=== PATIENT | male | born 1985 | race Caucasian/White ===

== ENCOUNTER 2018-08-08 22:04 | Emergency (ER) | payer OTHER ==
--- NOTE | 2018-08-08 23:04 | EDM.PDOC ---
ED HPI GENERAL MEDICAL PROBLEM - General Chief Complaint: Head Injury Stated Complaint: WCOMP/PIPE FELL ON HEAD Time Seen by Provider: 08/08/18 23:02 Source of Information: Reports: Patient History Limitations: Reports: No Limitations - History of Present Illness INITIAL COMMENTS - FREE TEXT/NARRATIVE: 33-year-old male presents the ED for evaluation of closed head injury that occurred in the workplace about 2300 hrs. last night. She works for a [employer] company. He was working currently at the [email or web address] in [place]. He works doing construction. He was up on a scaffold and on his knees with his hard hat in place last evening. He was struck suddenly from above mostly on the occipital aspect of his head by a large 3 inch pipe that was being pulled by machinery. This caused him to bend at the lower back aggressively and that the neck as his head was driven downwards towards his knees. He states he was dazed but he did not lose consciousness. The pipe caved in the inside of his hard hat. Ruptured the harness inside his hard hat. He states after a period of time he was able to continue and finish out his shift which ended about 5:30 in the morning. He has eaten twice since that time with no nausea or vomiting. He was able to sleep adequately today and felt enough to return to the workplace. However once he got to work with exertion he started developing significant headache which is better now at rest. He has no blurred vision no nausea or vomiting and no off balance feeling. Still has a headache rating it 3-4 out of 10 at this time. Didn't know if he can take Motrin because of concerns for possible bleeding. No previous severe closed his injury but he reports she's had a concussion at least twice in the past. He states his neck is a little stiff and sore but he has full range of motion. He denies any low back pain or injury to any other body parts. Onset: Sudden Onset Date: 08/07/18 Onset Time: 23:00 Duration: Hour(s):, Getting Worse Location: Reports: Head (Headache.) Quality: Reports: Ache Severity: Moderate (Headache 7 out of 10 at work tonight.) Improves with: Reports: Rest Worsens with: Reports: Other (Exertion.) Context: Reports: Trauma (Closed head injury last night in the workplace when he was struck by a large pipe from above on the occipital aspect of his head.). Denies: Activity, Exercise, Lifting, Sick Contact, Other Associated Symptoms: Reports: Headaches. Denies: Confusion, Chest Pain, Cough, cough w sputum, Diaphoresis, Fever/Chills, Loss of Appetite, Malaise, Nausea/ Vomiting, Rash, Seizure, Shortness of Breath, Syncope Treatments MARKETING SERVICES SPECIALIST: Reports: Other (see below) (None.) Headache Pain Score (Numeric/FACES): 5 - Related Data Allergies Allergy/AdvReac Type Severity Reaction Status Date / Time No Known Allergies Allergy Verified 08/08/18 23:55 Home Meds: Home Meds . [No Known Home Meds] 08/08/18 [History] Past Medical History Neurological History: Reports: Other (See Below) (Closed head injuries with concussion in the past) Social & Family History - Living Situation & Occupation Occupation: Employed ED ROS GENERAL - Review of Systems Review Of Systems: See Below Constitutional: Denies: Fever, Chills, Malaise, Weakness, Fatigue, Weight Loss HEENT: Reports: No Symptoms Respiratory: Reports: No Symptoms Cardiovascular: Reports: No Symptoms Endocrine: Reports: No Symptoms GI/Abdominal: Reports: No Symptoms : Reports: No Symptoms Musculoskeletal: Reports: Neck Pain. Denies: Shoulder Pain (Neck stiffness with full range of motion.), Arm Pain, Back Pain, Hand Pain, Leg Pain, Foot Pain , Joint Pain, Joint Swelling Skin: Reports: No Symptoms Neurological: Reports: Headache. Denies: Confusion, Dizziness, Numbness, Paresthesia, Pre-Existing Deficit, Seizure, Syncope, Tingling, Tremors, Trouble Speaking, Difficulty Walking, Weakness Psychiatric: Reports: No Symptoms Hematologic/Lymphatic: Reports: No Symptoms Immunologic: Reports: No Symptoms ED EXAM, HEAD INJURY - Physical Exam Exam: See Below Exam Limited By: No Limitations General Appearance: Alert, WD/WN, Anxious, Mild Distress Head: Atraumatic, Normocephalic, Other (No palpable deformities of the skull or scalp or scalp hematoma identified.) Nexus Criteria: Posterior, Midline Cervical Tenderness. No: Evidence of Intoxication, Altered Level of Consciousness, Focal Neurological Deficit, Painful Distraction Injuries Eyes: Bilateral Eye: Normal Inspection Nose: Normal Inspection, Normal Mucousa, No Blood Throat/Mouth: Normal Inspection, Normal Lips, Normal Teeth, Normal Gums, Normal Oropharynx Neck: Full Range of Motion, Stiff Neck. No: Normal Alignment, Normal Inspection Respiratory: No Respiratory Distress, Lungs Clear, Normal Breath Sounds, Chest Non-Tender Cardiovascular: Normal Peripheral Pulses, Regular Rate, Rhythm, No Edema, No Murmur, No Rub GI/Abdominal Exam: Normal Bowel Sounds, Soft, Non-Tender, No Organomegaly, No Abnormal Bruit, No Mass, Pelvis Stable Back Exam: Normal Inspection, Full Range of Motion. 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, No Motor/Sensory Deficits, Alert, Normal Mood/Affect, Oriented x 3 Skin: Normal Color, Warm/Dry - Gisel Coma Score Best Eye Response (Gisel): (4) Open Spontaneously Best Verbal Response (Gisel): (5) Oriented Best Motor Response (Gisel): (6) Obeys Commands Beaver Total: 15 Course - Vital Signs Last Recorded V/S: Last Vital Signs Temp 37.1 C 08/08/18 22:53 Pulse 79 08/08/18 22:53 Resp 18 08/08/18 22:53 BP 131/82 08/08/18 22:53 Pulse Ox 99 08/08/18 22:53 - Radiology Interpretation Free Text/Narrative:: 33-year-old male presents to the ED for evaluation after being injured night before last when he was struck from behind while kneeling by a large piece of 3 inch steel pipe. He was struck in the occipital aspect of his head which forces had progressively forwards towards his knees. States he was dazed but did not lose consciousness. States he ruptured the harness on the inner aspect of his heart had but did not open up the plastic of the hard hat. He states he was able to work the rest of the shift had a mild headache. Went home to sleep. Since awakening is had a mild to moderate headache. However when he went back to work on exertion the headache intensified some substantially. States for a while he was mildly nauseated but did not vomit. Denies any changes in his vision or balance. Headache is better while he is in the ED and at rest. Neuro exam is grossly normal. No obvious injuries to the skull or scalp identified. Mild tenderness to the cervical spine but range of motion is full without evidence of bony injury. Similarly upper thoracic spine and lower back appear to be normal as well. Plan CT head to be done - Re-Assessments/Exams Free Text/Narrative Re-Assessment/Exam: 08/08/18 23:57 CT head is normal with no signs of intracranial bleeding or mass effect. Patient advised of the findings and he was quite happy about this. He has received Motrin 600 mg while in the ED and is feeling somewhat better. Plan is for him to go home and sleep and not return to work tonight. Tentatively May return to work tomorrow. Departure - Departure Time of Disposition: 00:05 Disposition: Home, Self-Care 01 Condition: Fair Clinical Impression: Closed head injury Qualifiers: Encounter type: initial encounter Qualified Code(s): S09.90XA - Unspecified injury of head, initial encounter Headache Qualifiers: Headache type: post-traumatic Headache chronicity pattern: acute headache Intractability: not intractable Qualified Code(s): G44.319 - Acute post- traumatic headache, not intractable - Discharge Information *PRESCRIPTION DRUG MONITORING PROGRAM REVIEWED*: Not Applicable *COPY OF PRESCRIPTION DRUG MONITORING REPORT IN PATIENT JASMYN: Not Applicable Instructions: Head Injury, Adult, [id number] Referrals: PCP,None [Primary Care Provider] - Forms: ED Department Discharge, ED Return to Work/School Form Additional Instructions: Evaluation in the emergency room tonight after developing a significant pounding throbbing headache while in the workplace upon exertion. History of closed head injury last evening when you were struck from above by a 3 inch supply on the back of your head. You were wearing a hard hat at the time but it did damage the inside harness component of the hard hat. Headache is improved at rest. Blood pressure was found to be satisfactory. Neuro exam is continued to be normal. CT of the head was done to make sure the was no intracranial bleeding. No bleeding was identified no fractures of the skull and no midline shift or other abnormalities identified in the brain. Treatment is home to rest and sleep. Tentatively May return to work tomorrow. It is okay to take Motrin 600 mg every 6 hours if needed for headache relief.
--- NOTE | 2018-08-09 09:17 | CT ---
Head CT Technique: Multiple axial sections through the brain were obtained. Intravenous contrast was not utilized. Comparison: No prior intracranial imaging. Findings: Ventricles along with basal cisterns and sulci over the convexities are within normal limits for the patient's age. No abnormal parenchymal densities are seen. No evidence of intracranial hemorrhage. No midline shift or mass effect is seen. Bone window settings were reviewed which show the visualized sinuses do show nothing acute. No acute calvarial abnormality is seen. Impression: 1. Nothing acute is seen on noncontrast head CT exam. Diagnostic code #1 I agree with preliminary report from [facility], finalized on 08/09/18, 1:02 AM Central Time
== END 2018-08-09 00:12 | disposition home or self-care (01) ==
LOC: JD.ED 22:04
DX: S09.90XA Unspecified injury of head, initial encounter (principal); G44.319 Acute post-traumatic headache, not intractable; W22.8XXA Striking against or struck by other objects, initial encounter; Y99.0 Civilian activity done for income or pay
CPT/HCPCS: 70450; 70450-26; 99283-25